=== PATIENT | male | born 1965 | race Two or more races ===

== ENCOUNTER 2019-05-29 08:47 | Inpatient (IN) | payer OTHER ==
--- NOTE | 2019-05-29 09:12 | PDOC ---
History of Present Illness - General Chief Complaint: Respiratory Stated Complaint: COUGHING/FEVER Time Seen by Provider: 05/29/19 09:12 Past History - Past Medical History Allergies/Adverse Reactions: Allergies Allergy/AdvReac Type Severity Reaction Status Date / Time No Known Allergies Allergy Verified 05/29/19 08:56 Home Medications: Ambulatory Orders Acetaminophen [Tylenol .Regular Strength -] 650 mg PO Q4H PRN #0 tablet Enalapril Maleate 2.5 mg PO DAILY 05/29/19 Entecavir 1 mg PO DAILY 05/29/19 Fluticasone Prop 0.05% Nasal [Flonase -] 1 spr IN ASDIR 05/29/19 Metformin HCl [Glucophage] 1,000 mg PO DAILY 05/29/19 Mv-Min/Folic/Vit K/Lycop/Coq10 [Daily Multivitamin Capsule] 1 each PO DAILY Simvastatin 20 mg PO HS 05/29/19 Anemia: No Asthma: No Cancer: Yes (MANTLE CELL LYMPHOMA) CVA: No COPD: No CHF: No Dementia: No Diabetes: Yes GI Disorders: Yes (GERD) Disorders: No HTN: No Hypercholesterolemia: Yes Liver Disease: Yes (CHRONIC NONALCOHOLIC LIVER DISEASE) Seizures: No - Surgical History Abdominal Surgery: No Appendectomy: Yes Cardiac Surgery: No Cholecystectomy: No Lung Surgery: Yes Neurologic Surgery: No Orthopedic Surgery: No - Psycho Social/Smoking Cessation Hx Smoking History: Never smoked Have you smoked in the past 12 months: No Number of Cigarettes Smoked Daily: 3 'Breaking Loose' booklet given: 10/19/15 Hx Alcohol Use: No Drug/Substance Use Hx: No Substance Use Type: None Hx Substance Use Treatment: No *Physical Exam - Vital Signs Last Vital Signs Temp Pulse Resp BP Pulse Ox 99.7 F H 101 H 20 91/60 97 05/29/19 09:02 05/29/19 09:02 05/29/19 09:02 05/29/19 09:02 05/29/19 09:02 Discharge - Follow up/Referral Referrals: Rufus Layne MD [Primary Care Provider] - - Patient Discharge Instructions - Post Discharge Activity
[2019-05-29] MEDS ORDERED: SODIUM CHLORIDE 2,041 ML IV ONE (09:26)
[2019-05-29 09:57] LABS: BASO % 0.5 % (0-2.0); HEMATOCRIT 37.5 % (35.4-49); HEMOGLOBIN 13.1 GM/dL (11.7-16.9); LYMPH % 20.6 % (8-40); MCH 34.6 pg (25.7-33.7); MCHC 35.1 g/dl (32.0-35.9); MEAN CELL VOLUME 98.6 fl (80-96); MEAN PLT VOLUME 7.5 fl (7.5-11.1); MONO % 14.1 % (3.8-10.2); NEUT % 64.8 % (42.8-82.8); PLATELET COUNT 149 K/MM3 (134-434); RDW 12.5 % (11.9-15.9); WHITE BLOOD COUNT 6.6 K/mm3 (4.0-10.0)
[2019-05-29 10:00] LABS: VENOUS PC02 33.4 mmHg (38-52); VENOUS PH 7.41 (7.31-7.41)
[2019-05-29 10:03] LABS: VENOUS PO2 < 49 mmHg (28-48)
[2019-05-29 10:21] LABS: ALBUMIN 3.5 g/dl (3.4-5.0); BILIRUBIN,TOTAL 0.8 mg/dL (0.2-1); BLOOD UREA NITROGEN 25.7 mg/dL (7-18); CREATININE 1.7 mg/dL (0.55-1.3); POTASSIUM 3.7 mmol/L (3.5-5.1); TOT PROT 6.6 g/dl (6.4-8.2)
[2019-05-29] MEDS ORDERED: OSELTAMIVIR PHOSPHATE 75 MG CAPSULE PO ONE (10:33)
[2019-05-29] MEDS ORDERED: PIPERACILLIN/TAZOB 3.375 GM 3.375 GM in DEXTROSE 5%-WATER - 50 ML IVPB ONE (10:37)
--- NOTE | 2019-05-29 10:41 | PDOC ---
Documentation entered by Freddy Giron SCRIBE, acting as scribe for Herminia Oswald MD. Herminia Oswald MD: This documentation has been prepared by the Mack arredondo Nirvannie, SCRIBE, under my direction and personally reviewed by me in its entirety. I confirm that the documentation accurately reflects all work, treatment, procedures, and medical decision making performed by me. History of Present Illness - General Chief Complaint: Respiratory Stated Complaint: COUGHING/FEVER Time Seen by Provider: 05/29/19 09:12 History Source: Patient Exam Limitations: No Limitations - History of Present Illness Initial Comments: 05/29/19 09:47 The patient is a 53 year old male, with a significant past medical history of NIDDM, Lymphoma (s/p bone marrow transplant), GERD, and HLD, who presents to the emergency department with 4 days of generalized malaise, cough and new onset chills. He endorses an associated mild sore throat. Patient notes taking Tylenol and Ibuprofen, with minimal relief prompting his arrival to the ED. Last dosage of Tylenol was at 7am. He denies any recent dizziness. He denies any recent nausea, vomiting, diarrhea or constipation. He denies any recent chest pain or shortness of breath. He denies any recent dysuria, frequency, urgency or hematuria. Allergies: NKDA Past surgical history: S/p Bone marrow transplant. Social History: Former smoker. Denies EtOH use and recreational drug use. Primary Care Physician: Dr. Layne Past History - Past Medical History Allergies/Adverse Reactions: Allergies Allergy/AdvReac Type Severity Reaction Status Date / Time No Known Allergies Allergy Verified 05/29/19 08:56 Home Medications: Ambulatory Orders Acetaminophen [Tylenol .Regular Strength -] 650 mg PO Q4H PRN #0 tablet Enalapril Maleate 2.5 mg PO DAILY 05/29/19 Entecavir 1 mg PO DAILY 05/29/19 Fluticasone Prop 0.05% Nasal [Flonase -] 1 spr IN ASDIR 05/29/19 Metformin HCl [Glucophage] 1,000 mg PO DAILY 05/29/19 Mv-Min/Folic/Vit K/Lycop/Coq10 [Daily Multivitamin Capsule] 1 each PO DAILY Simvastatin 20 mg PO HS 05/29/19 Anemia: No Asthma: No Cancer: Yes (MANTLE CELL LYMPHOMA) CVA: No COPD: No CHF: No Dementia: No Diabetes: Yes GI Disorders: Yes (GERD) Disorders: No HTN: No Hypercholesterolemia: Yes Liver Disease: Yes (CHRONIC NONALCOHOLIC LIVER DISEASE) Seizures: No - Surgical History Abdominal Surgery: No Appendectomy: Yes Cardiac Surgery: No Cholecystectomy: No Lung Surgery: Yes Neurologic Surgery: No Orthopedic Surgery: No - Psycho Social/Smoking Cessation Hx Smoking History: Never smoked Have you smoked in the past 12 months: No Number of Cigarettes Smoked Daily: 3 'Breaking Loose' booklet given: 10/19/15 Hx Alcohol Use: No Drug/Substance Use Hx: No Substance Use Type: None Hx Substance Use Treatment: No Review of Systems - Review of Systems Able to Perform ROS?: Yes Comments:: 05/29/19 09:47 GENERAL/CONSTITUTIONAL: +chills. +body aches. HEAD, EYES, EARS, NOSE AND THROAT: No change in vision. No ear pain or discharge. No sore throat. CARDIOVASCULAR: No chest pain or shortness of breath. RESPIRATORY:+cough. No wheezing, or hemoptysis. GASTROINTESTINAL: No nausea, vomiting, diarrhea or constipation. GENITOURINARY: No dysuria, frequency, or change in urination. MUSCULOSKELETAL:. No neck or back pain. SKIN: No rash NEUROLOGIC: No vertigo, loss of consciousness, or change in strength/sensation. ENDOCRINE: No increased thirst. No abnormal weight change. HEMATOLOGIC/LYMPHATIC: No anemia, easy bleeding, or history of blood clots. ALLERGIC/IMMUNOLOGIC: No hives or skin allergy. All Other Systems: Reviewed and Negative *Physical Exam - Vital Signs Last Vital Signs Temp Pulse Resp BP Pulse Ox 99.7 F H 101 H 20 91/60 97 05/29/19 09:02 05/29/19 09:02 05/29/19 09:02 05/29/19 09:02 05/29/19 09:02 - Physical Exam 05/29/19 09:54 GENERAL: +Mildly diaphoretic. Awake, alert, and fully oriented, in no acute distress HEAD: No signs of trauma EYES: PERRLA, EOMI, sclera anicteric, conjunctiva clear ENT: Auricles normal inspection, hearing grossly normal, nares patent, oropharynx clear without exudates. Moist mucosa NECK: Normal ROM, supple, no lymphadenopathy, JVD, or masses LUNGS: Breath sounds equal, clear to auscultation bilaterally. No wheezes, and no crackles HEART: Regular rate and rhythm, normal S1 and S2, no murmurs, rubs or gallops ABDOMEN: Soft, nontender, normoactive bowel sounds. No guarding, no rebound. No masses EXTREMITIES: Normal range of motion, no edema, no rash, No clubbing or cyanosis. No cords, erythema, or tenderness NEUROLOGICAL: A&Ox3. Cranial nerves II through XII grossly intact. Normal speech, normal gait SKIN: Warm, Dry, normal turgor, no rashes or lesions noted ED Treatment Course - LABORATORY CBC & Chemistry Diagram: 05/29/19 09:34 05/29/19 09:34 - ADDITIONAL ORDERS Additional order review: Laboratory Results 05/29/19 05/29/19 05/29/19 09:54 09:34 09:34 VBG pH 7.41 POC VBG pCO2 33.4 L POC VBG pO2 < 49 H VBG HCO3 20.5 L VBG O2 Sat (Sheila) 83.3 H VBG Base Excess -2.8 L Sodium Potassium Chloride Carbon Dioxide Anion Gap BUN Creatinine Est GFR (CKD-EPI)AfAm Est GFR (CKD-EPI)NonAf POC Glucometer 201 Random Glucose Lactic Acid 2.2 H* Calcium Total Bilirubin AST ALT Alkaline Phosphatase Troponin I Total Protein Albumin 05/29/19 05/29/19 09:34 09:34 VBG pH POC VBG pCO2 POC VBG pO2 VBG HCO3 VBG O2 Sat (Sheila) VBG Base Excess Sodium 134 L Potassium 3.7 Chloride 104 Carbon Dioxide 22 Anion Gap 8 BUN 25.7 H Creatinine 1.7 H Est GFR (CKD-EPI)AfAm 51.47 Est GFR (CKD-EPI)NonAf 44.41 POC Glucometer Random Glucose 204 H Lactic Acid Calcium 8.0 L Total Bilirubin 0.8 AST 20 ALT 26 Alkaline Phosphatase 83 Troponin I < 0.02 Total Protein 6.6 Albumin 3.5 05/29/19 05/29/19 09:54 09:34 RBC 3.80 L MCV 98.6 H MCHC 35.1 RDW 12.5 MPV 7.5 D Neutrophils % 64.8 D Lymphocytes % 20.6 D Monocytes % 14.1 H Eosinophils % 0.0 D Basophils % 0.5 POC Glucometer 201 - RADIOLOGY Radiology Studies Ordered: Category Date Time Status CHEST X-RAY PORTABLE* [RAD] Stat Radiology 05/29/19 09:26 Taken Medical Decision Making - Critical Care Time Total Critical Care Time (minutes): 45 Critical Care Statement: The care of this patient involved high complexity decision making to prevent further life threatening deterioration of the patient 's condition and/or to evaluate & treat vital organ system(s) failure or risk of failure. - Medical Decision Making 05/29/19 10:30 pt presents to the ED complaining of a four day history of fever, myalgias and productive cough. Borderline hypotensive on arrival to the ED. History of lymphoma with bone marrow transplant in 2017. Flu B is positive. Will start treatment with tamiflu. Given persistent mild hypotension, will start IV antibiotics for presumed sepsis, although no source has been identified. Will admit to medicine. 05/29/19 10:38 Discharge - Discharge Information Problems reviewed: Yes Clinical Impression/Diagnosis: Influenza B Sepsis Qualifiers: Sepsis type: sepsis due to unspecified organism Sepsis acute organ dysfunction status: unspecified Qualified Code(s): A41.9 - Sepsis, unspecified organism Condition: Fair - Admission Yes - Follow up/Referral - Patient Discharge Instructions - Post Discharge Activity
[2019-05-29] MEDS ORDERED: SODIUM CHLORIDE 0.9% 500 ML INFUS.BAG IV ONE (10:42)
[2019-05-29] MEDS ORDERED: OSELTAMIVIR PHOSPHATE 75 MG CAPSULE ONE (10:43)
[2019-05-29] MEDS ORDERED: PIPERACILLIN/TAZOB 3.375 GM 3.375 GM/50 ML BAG IVPB ONE (10:44)
[2019-05-29 10:48] LABS: INR 1.15 (0.83-1.09); PROTHROMBIN TIME (PATIENT) 13.6 SEC (9.7-13.0)
[2019-05-29 10:50] LABS: ACTIVATED PTT 39.8 SECONDS (25.2-36.5)
--- NOTE | 2019-05-29 11:51 | PDOC ---
*Physical Exam - Vital Signs Last Vital Signs Temp Pulse Resp BP Pulse Ox 98.7 F 83 16 90/62 96 05/29/19 10:30 05/29/19 11:04 05/29/19 11:04 05/29/19 11:04 05/29/19 10:30 Vital Signs - Vital Signs #1 Time: 11:51 Blood Pressure: 100/64 BP Location: Right Arm Blood Pressure Position: Supine Pulse Rate: 89 Respiratory Rate: 26 O2 Sat by Pulse Oximetry (%): 95 Oxygen Delivery Method: Room Air ED Treatment Course - LABORATORY CBC & Chemistry Diagram: 05/29/19 09:34 05/29/19 09:34 - ADDITIONAL ORDERS Additional order review: Laboratory Results 05/29/19 05/29/19 05/29/19 09:54 09:34 09:34 PT with INR INR PTT (Actin FS) VBG pH 7.41 POC VBG pCO2 33.4 L POC VBG pO2 < 49 H VBG HCO3 20.5 L VBG O2 Sat (Sheila) 83.3 H VBG Base Excess -2.8 L Sodium Potassium Chloride Carbon Dioxide Anion Gap BUN Creatinine Est GFR (CKD-EPI)AfAm Est GFR (CKD-EPI)NonAf POC Glucometer 201 Random Glucose Lactic Acid 2.2 H* Calcium Total Bilirubin AST ALT Alkaline Phosphatase Troponin I Total Protein Albumin 05/29/19 05/29/19 05/29/19 09:34 09:34 09:34 PT with INR 13.60 H INR 1.15 H PTT (Actin FS) 39.8 H VBG pH POC VBG pCO2 POC VBG pO2 VBG HCO3 VBG O2 Sat (Sheila) VBG Base Excess Sodium 134 L Potassium 3.7 Chloride 104 Carbon Dioxide 22 Anion Gap 8 BUN 25.7 H Creatinine 1.7 H Est GFR (CKD-EPI)AfAm 51.47 Est GFR (CKD-EPI)NonAf 44.41 POC Glucometer Random Glucose 204 H Lactic Acid Calcium 8.0 L Total Bilirubin 0.8 AST 20 ALT 26 Alkaline Phosphatase 83 Troponin I < 0.02 Total Protein 6.6 Albumin 3.5 05/29/19 05/29/19 09:54 09:34 RBC 3.80 L MCV 98.6 H MCHC 35.1 RDW 12.5 MPV 7.5 D Neutrophils % 64.8 D Lymphocytes % 20.6 D Monocytes % 14.1 H Eosinophils % 0.0 D Basophils % 0.5 POC Glucometer 201 - Medications Given in the ED: ED Medications Discontinued Medications Generic Name Dose Route Start Last Admin Trade Name Danika PRN Reason Stop Dose Admin Sodium Chloride 2,041 mls @ 1,020.5 mls/hr 05/29/19 09:26 05/29/19 09:50 Normal Saline - 30 ml/kg infuse over 2 hr (2041 ml) 05/29/19 11:25 1,020.5 mls/hr IV Administration ONCE ONE Piperacillin Sod/Tazobactam 50 mls @ 100 mls/hr 05/29/19 10:37 05/29/19 10:45 Sod 3.375 gm/ Dextrose IVPB 05/29/19 11:06 100 mls/hr ONCE ONE Administration Protocol Oseltamivir Phosphate 75 mg 05/29/19 10:33 05/29/19 10:45 Tamiflu - PO 05/29/19 10:34 75 mg ONCE ONE Administration Sodium Chloride 1,000 ml 05/29/19 10:42 05/29/19 10:46 Normal Saline - IV 05/29/19 10:43 1,000 ml ONCE ONE Administration Medical Decision Making - Medical Decision Making I have assumed care to help out with any procedures if needed Patient consented for central line placement if BP remains low and patient requires pressers Inpatient team wants to wait on central line for time being. BP stabilized with additional fluid and patient did not end up needing a central line for pressers. Discharge - Discharge Information Problems reviewed: Yes Clinical Impression/Diagnosis: Influenza B Sepsis Qualifiers: Sepsis type: sepsis due to unspecified organism Sepsis acute organ dysfunction status: unspecified Qualified Code(s): A41.9 - Sepsis, unspecified organism Condition: Stable - Follow up/Referral - Patient Discharge Instructions - Post Discharge Activity
[2019-05-29] MEDS ORDERED: SODIUM CHLORIDE 500 ML IV STA (12:07)
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
[2019-05-29] MEDS ORDERED: SODIUM CHLORIDE 1,000 ML IV SCH (12:15)
[2019-05-29 12:18] LABS: EPI CELLS 1.8 /HPF (0-5/HPF); HYALINE CASTS 2 /lpf (0-8); URINE APPEARANCE CLEAR; URINE BACTERIA 4.1 /hpf (NEGATIVE); URINE BILIRUBIN NEGATIVE (NEGATIVE); URINE COLOR YELLOW; URINE GLUCOSE (UA) NEGATIVE (NEGATIVE); URINE KETONE NEGATIVE (NEGATIVE); URINE LEUK ESTERASE 1+ (NEGATIVE); URINE NITRITE NEGATIVE (NEGATIVE); URINE PROTEIN TRACE (NEGATIVE); URINE RBC 1 /hpf (0-4); URINE UROBILINOGEN 0.2 mg/dL (0.2-1.0); URINE WBC 1 /hpf (0-5)
--- NOTE | 2019-05-29 13:40 | PN ---
Teaching Attending Note Name of Resident: Grupo Cedillo ATTENDING PHYSICIAN STATEMENT I saw and evaluated the patient. I reviewed the resident's note and discussed the case with the resident. I agree with the resident's findings and plan as documented. SUBJECTIVE: Patient seen and examined in the ER. Awake and alert. Has received almost 3 Liters IVF. Feels better. MAP 68. No tachycardia. No dizziness. No CP or SOB. Intake & Output 05/26/19 05/27/19 05/28/19 05/29/19 23:59 23:59 23:59 23:59 Weight 150 lb Last Vital Signs Temp Pulse Resp BP Pulse Ox 98.1 F 89 26 H 100/64 95 05/29/19 13:26 05/29/19 13:33 05/29/19 13:33 05/29/19 13:33 05/29/19 13:33 Active Medications Acetaminophen (Tylenol -) 650 mg PO Q6H PRN PRN Reason: FEVER Heparin Sodium (Porcine) (Heparin -) 5,000 unit SQ Q8H-IV ROS Sodium Chloride (Normal Saline -) 500 mls @ 500 mls/hr IV ASDIR STA Stop: 05/29/19 13:06 Last Admin: 05/29/19 13:20 Dose: 500 mls/hr Sodium Chloride (Normal Saline -) 1,000 mls @ 100 mls/hr IV ASDIR ROS Last Admin: 05/29/19 13:20 Dose: 100 mls/hr Sodium Chloride (Normal Saline -) 1,000 mls @ 125 mls/hr IV ASDIR ROS Insulin Aspart (Novolog Vial Sliding Scale -) 0 vial SQ ACHS ROS; Protocol Oseltamivir Phosphate (Tamiflu -) 75 mg PO BID ROS Stop: 06/03/19 21:59 GENERAL: Awake, alert, and fully oriented, in no acute distress HEAD: No signs of trauma EYES: PERRLA, EOMI, sclera anicteric, conjunctiva clear ENT: Auricles normal inspection, hearing grossly normal, nares patent, oropharynx clear without exudates. Moist mucosa NECK: Normal ROM, supple, no lymphadenopathy, JVD, or masses LUNGS: Breath sounds equal, clear to auscultation bilaterally. No wheezes, and no crackles HEART: Regular rate and rhythm, normal S1 and S2, no murmurs, rubs or gallops ABDOMEN: Soft, nontender, normoactive bowel sounds. No guarding, no rebound. No masses EXTREMITIES: Normal range of motion, no edema, no rash, No clubbing or cyanosis. No cords, erythema, or tenderness NEUROLOGICAL: A&Ox3. Non-focal SKIN: Warm, Dry, normal turgor, no rashes or lesions noted Laboratory Results 05/29/19 05/29/19 05/29/19 09:54 09:34 09:34 VBG pH 7.41 POC VBG pCO2 33.4 L POC VBG pO2 < 49 H VBG HCO3 20.5 L VBG O2 Sat (Sheila) 83.3 H VBG Base Excess -2.8 L Sodium Potassium Chloride Carbon Dioxide Anion Gap BUN Creatinine Est GFR (CKD-EPI)AfAm Est GFR (CKD-EPI)NonAf POC Glucometer 201 Random Glucose Lactic Acid 2.2 H* Calcium Total Bilirubin AST ALT Alkaline Phosphatase Troponin I Total Protein Albumin 05/29/19 05/29/19 09:34 09:34 VBG pH POC VBG pCO2 POC VBG pO2 VBG HCO3 VBG O2 Sat (Sheila) VBG Base Excess Sodium 134 L Potassium 3.7 Chloride 104 Carbon Dioxide 22 Anion Gap 8 BUN 25.7 H Creatinine 1.7 H Est GFR (CKD-EPI)AfAm 51.47 Est GFR (CKD-EPI)NonAf 44.41 POC Glucometer Random Glucose 204 H Lactic Acid Calcium 8.0 L Total Bilirubin 0.8 AST 20 ALT 26 Alkaline Phosphatase 83 Troponin I < 0.02 Total Protein 6.6 Albumin 3.5 05/29/19 05/29/19 09:54 09:34 RBC 3.80 L MCV 98.6 H MCHC 35.1 RDW 12.5 MPV 7.5 D Neutrophils % 64.8 D Lymphocytes % 20.6 D Monocytes % 14.1 H Eosinophils % 0.0 D Basophils % 0.5 POC Glucometer 201 IMP: Sepsis due to Influenza B History of Mantle Cell CA Previous Smoker SEN likely due to volume depletion Continue aggressive IVF resuscitation O2 as needed Isolate Tamiflu BID BP checks Q4h Will follow Please call for changes in condition Can be monitored on the medical floor at this time Dr Farrell
[2019-05-29] MEDS: SODIUM CHLORIDE 1,000 ML IV SCH (14:12)
--- NOTE | 2019-05-29 14:39 | EKG ---
Test Reason : Blood Pressure : / mmHG Vent. Rate : 100 BPM Atrial Rate : 089 BPM P-R Int : 162 ms QRS Dur : 092 ms QT Int : 352 ms P-R-T Axes : 038 -24 050 degrees QTc Int : 454 ms SINUS RHYTHM WITH FREQUENT PREMATURE VENTRICULAR COMPLEXES OTHERWISE NORMAL ECG WHEN COMPARED WITH ECG OF 19-OCT-2015 05:23, PREMATURE VENTRICULAR COMPLEXES ARE NOW PRESENT Confirmed by KRYSTLE FELICIANO MD ([id number]) on 05/29/2019 2:39:21 PM Referred By: Confirmed By:KRYSTLE FELICIANO MD
[2019-05-29] MEDS: HEPARIN NA (PORCINE) 5,000 UNITS/ML 1ML VIAL SQ SCH ×2 (14:41→22:58)
--- NOTE | 2019-05-29 14:53 | PN ---
Teaching Attending Note Name of Resident: Valerio Soto ATTENDING PHYSICIAN STATEMENT I saw and evaluated the patient. I reviewed the resident's note and discussed the case with the resident. I agree with the resident's findings and plan as documented. 53 M h/o HTN, NIDDM, ?chronic Hep B, remote h/o lymphoma (s/p bone marrow transplant years ago), GERD, and HLD, presenting to the ED with generalized body weakness, malaise, muscle aches, soreness, runny nose, and cough with yellow sputum production that started 2 days ago. Patient endorses taking Theraflu and some NSAIDs at home due to above symptoms. Otherwise denies sick contacts, works as a lunch truck driver, denies recent hospitalizations. Denies recent travel, bleeding from any source, abdominal pain, N/V/D, urinary complaints, dizziness, CP or SOB. In ED pt. found to have Influenza B+. Tamiflu started. PE GA comfortable, AAox3, sitting upright, NAD HEENT NC/AT, EOMI, dry MM, neck supple, no cervical lymphadenopathy Chest CTAB, no crackles or wheezing CVS S1, S2+, RRR, no m/r/g Abd Soft, NT, ND, BS+, no guarding Ext No LE edema, no calf tenderness, moves all 4 extremities Vital Signs - 24 hr 05/29/19 05/29/19 05/29/19 09:02 09:58 10:30 Temperature 99.7 F H 98.7 F Pulse Rate 101 H Pulse Rate [#1] Pulse Rate [ 90 86 Apical] Respiratory 20 22 H 17 Rate Respiratory Rate [#1] Blood Pressure 91/60 Blood Pressure [#1] Blood Pressure 83/52 L 87/56 L [Left Arm] O2 Sat by Pulse 97 95 96 Oximetry (%) O2 Sat by Pulse Oximetry (%) [ #1] 05/29/19 05/29/19 05/29/19 11:04 12:00 13:26 Temperature 98.1 F Pulse Rate Pulse Rate [#1] Pulse Rate [ 83 83 Apical] Respiratory 16 17 Rate Respiratory Rate [#1] Blood Pressure Blood Pressure [#1] Blood Pressure 90/62 103/61 [Left Arm] O2 Sat by Pulse Oximetry (%) O2 Sat by Pulse Oximetry (%) [ #1] 05/29/19 13:33 Temperature Pulse Rate Pulse Rate [#1] 89 Pulse Rate [ Apical] Respiratory Rate Respiratory 26 H Rate [#1] Blood Pressure Blood Pressure 100/64 [#1] Blood Pressure [Left Arm] O2 Sat by Pulse Oximetry (%) O2 Sat by Pulse 95 Oximetry (%) [ #1] Laboratory Tests 05/29/19 05/29/19 05/29/19 09:34 09:34 09:34 WBC 6.6 RBC 3.80 L Hgb 13.1 Hct 37.5 MCV 98.6 H MCH 34.6 H MCHC 35.1 RDW 12.5 Plt Count 149 MPV 7.5 D Absolute Neuts (auto) 4.3 Neutrophils % 64.8 D Lymphocytes % 20.6 D Monocytes % 14.1 H Eosinophils % 0.0 D Basophils % 0.5 Nucleated RBC % 0 PT with INR 13.60 H INR 1.15 H PTT (Actin FS) 39.8 H VBG pH POC VBG pCO2 POC VBG pO2 VBG HCO3 VBG O2 Sat (Sheila) VBG Base Excess Sodium Potassium Chloride Carbon Dioxide Anion Gap BUN Creatinine Est GFR (CKD-EPI)AfAm Est GFR (CKD-EPI)NonAf POC Glucometer Random Glucose Lactic Acid Calcium Total Bilirubin AST ALT Alkaline Phosphatase Troponin I < 0.02 Total Protein Albumin Urine Color Urine Appearance Urine pH Ur Specific [place] Urine Protein Urine Glucose (UA) Urine Ketones Urine Blood Urine Nitrite Urine Bilirubin Urine Urobilinogen Ur Leukocyte Esterase Urine WBC (Auto) Urine RBC (Auto) Urine Casts (Auto) U Epithel Cells (Auto) Urine Bacteria (Auto) Influenza A (Rapid) Influenza B (Rapid) 05/29/19 05/29/19 05/29/19 09:34 09:34 09:34 WBC RBC Hgb Hct MCV MCH MCHC RDW Plt Count MPV Absolute Neuts (auto) Neutrophils % Lymphocytes % Monocytes % Eosinophils % Basophils % Nucleated RBC % PT with INR INR PTT (Actin FS) VBG pH 7.41 POC VBG pCO2 33.4 L POC VBG pO2 < 49 H VBG HCO3 20.5 L VBG O2 Sat (Sheila) 83.3 H VBG Base Excess -2.8 L Sodium 134 L Potassium 3.7 Chloride 104 Carbon Dioxide 22 Anion Gap 8 BUN 25.7 H Creatinine 1.7 H Est GFR (CKD-EPI)AfAm 51.47 Est GFR (CKD-EPI)NonAf 44.41 POC Glucometer Random Glucose 204 H Lactic Acid 2.2 H* Calcium 8.0 L Total Bilirubin 0.8 AST 20 ALT 26 Alkaline Phosphatase 83 Troponin I Total Protein 6.6 Albumin 3.5 Urine Color Urine Appearance Urine pH Ur Specific [place] Urine Protein Urine Glucose (UA) Urine Ketones Urine Blood Urine Nitrite Urine Bilirubin Urine Urobilinogen Ur Leukocyte Esterase Urine WBC (Auto) Urine RBC (Auto) Urine Casts (Auto) U Epithel Cells (Auto) Urine Bacteria (Auto) Influenza A (Rapid) Influenza B (Rapid) 05/29/19 05/29/19 05/29/19 09:54 09:57 12:00 WBC RBC Hgb Hct MCV MCH MCHC RDW Plt Count MPV Absolute Neuts (auto) Neutrophils % Lymphocytes % Monocytes % Eosinophils % Basophils % Nucleated RBC % PT with INR INR PTT (Actin FS) VBG pH POC VBG pCO2 POC VBG pO2 VBG HCO3 VBG O2 Sat (Sheila) VBG Base Excess Sodium Potassium Chloride Carbon Dioxide Anion Gap BUN Creatinine Est GFR (CKD-EPI)AfAm Est GFR (CKD-EPI)NonAf POC Glucometer 201 Random Glucose Lactic Acid Calcium Total Bilirubin AST ALT Alkaline Phosphatase Troponin I Total Protein Albumin Urine Color Yellow Urine Appearance Clear Urine pH 6.0 Ur Specific [place] 1.009 L Urine Protein Trace Urine Glucose (UA) Negative Urine Ketones Negative Urine Blood Negative Urine Nitrite Negative Urine Bilirubin Negative Urine Urobilinogen 0.2 Ur Leukocyte Esterase 1+ H Urine WBC (Auto) 1 Urine RBC (Auto) 1 Urine Casts (Auto) 2 U Epithel Cells (Auto) 1.8 Urine Bacteria (Auto) 4.1 Influenza A (Rapid) Negative Influenza B (Rapid) Positive A 05/29/19 13:17 WBC RBC Hgb Hct MCV MCH MCHC RDW Plt Count MPV Absolute Neuts (auto) Neutrophils % Lymphocytes % Monocytes % Eosinophils % Basophils % Nucleated RBC % PT with INR INR PTT (Actin FS) VBG pH POC VBG pCO2 POC VBG pO2 VBG HCO3 VBG O2 Sat (Sheila) VBG Base Excess Sodium Potassium Chloride Carbon Dioxide Anion Gap BUN Creatinine Est GFR (CKD-EPI)AfAm Est GFR (CKD-EPI)NonAf POC Glucometer Random Glucose Lactic Acid 1.3 Calcium Total Bilirubin AST ALT Alkaline Phosphatase Troponin I Total Protein Albumin Urine Color Urine Appearance Urine pH Ur Specific [place] Urine Protein Urine Glucose (UA) Urine Ketones Urine Blood Urine Nitrite Urine Bilirubin Urine Urobilinogen Ur Leukocyte Esterase Urine WBC (Auto) Urine RBC (Auto) Urine Casts (Auto) U Epithel Cells (Auto) Urine Bacteria (Auto) Influenza A (Rapid) Influenza B (Rapid) Home Medications Medication Instructions Recorded Acetaminophen [Tylenol .Regular 650 mg PO Q4H PRN #0 tablet 10/22/15 Strength -] Enalapril Maleate 2.5 mg PO DAILY 05/29/19 Entecavir 1 mg PO DAILY 05/29/19 Fluticasone Prop 0.05% Nasal 1 spr IN ASDIR 05/29/19 [Flonase -] Metformin HCl [Glucophage] 1,000 mg PO DAILY 05/29/19 Mv-Min/Folic/Vit K/Lycop/Coq10 1 each PO DAILY 05/29/19 [Daily Multivitamin Capsule] Simvastatin 20 mg PO HS 05/29/19 A/P: 53 M h/o T2DM, lymphoma (remote history), ?chronic Hep B, HTN, GERD, HLD, presents with viral-like illness, Flu B+, soft BP in ED but responding to fluids. Influenza B+ aggressive IVF patient clinically dry not effectively volume resuscitated, cont. IV hydration @125mL/hr, give another bolus of NS Cont. Tamiflu, droplet isolation, notify family/close contacts Tylenol for fever or pain, avoid nephrotoxins/NSAIDs HTN hold BP meds for now Elevated lactic acid likely 2/2 volume depletion and transient hypotension now resolved with IVF HLD restart statin SEN ?related to pre-renal cause, in addition to NSAID use at home aggressive IVF, trend CRE, obtain renal US, Hold entecavir for now in view of SEN and concurrent oseltamivir use to avoid drug-drug interaction Renal consult: Dr Eldridge DVT ppx: Lovenox SC FEN: IVF, daily chem, DM diet
[2019-05-29] MEDS: INSULIN SLIDING SCALE (NOVOLOG) 1 VIAL SQ SCH ×2 (17:02→22:59)
--- NOTE | 2019-05-29 17:02 | CONSULT ---
Consultation: REQUESTING PROVIDER: CONSULT REQUEST: We have been asked to medically evaluate this patient for ( specify). HISTORY OF PRESENT ILLNESS: 53 yo M PMH HTN, HLD, NIDDM, lymphoma s/p bone marrow transplant, GERD, presented to the ED with 4 days of generalized body weakness, malaise, muscle aches, and cough. Tried Thermaflu at home without relief. Found to be rapid flu B positive. Initially hypotensive to 87/56, but after 3L of fluid, had improved BP. Received piptazo in the ED. Patient is Czech speaking only. REVIEW OF SYSTEMS: CONSTITUTIONAL: endorses fever, chills, generalized weakness, malaise HEENT: endorses rhinorrhea, nasal congestion CARDIOVASCULAR: denies chest pain, syncope, palpitations, irregular heart rate, lightheadedness, peripheral edema RESPIRATORY: endorses cough, shortness of breath, dyspnea with exertion GASTROINTESTINAL: denies abdominal pain, abdominal distension, nausea, vomiting , diarrhea, constipation, melena, hematochezia GENITOURINARY: denies dysuria, frequency, urgency, hesitancy, hematuria, flank pain, genital pain MUSCULOSKELETAL: endorses myalgias SKIN: denies rash, itching, pallor HEMATOLOGIC/IMMUNOLOGIC: denies easy bleeding, easy bruising, lymphadenopathy, frequent infections ENDOCRINE: denies unexplained weight gain, unexplained weight loss, heat intolerance, cold intolerance NEUROLOGIC: denies headache, focal weakness or paresthesias, dizziness, unsteady gait, seizure, mental status changes, bladder or bowel incontinence PSYCHIATRIC: denies anxiety, depression, suicidal or homicidal ideation, hallucinations. PHYSICAL EXAMINATION Vital Signs - 24 hr 05/29/19 05/29/19 05/29/19 09:02 09:58 10:30 Temperature 99.7 F H 98.7 F Pulse Rate 101 H Pulse Rate [#1] Pulse Rate [ 90 86 Apical] Respiratory 20 22 H 17 Rate Respiratory Rate [#1] Blood Pressure 91/60 Blood Pressure [#1] Blood Pressure 83/52 L 87/56 L [Left Arm] O2 Sat by Pulse 97 95 96 Oximetry (%) O2 Sat by Pulse Oximetry (%) [ #1] 05/29/19 05/29/19 05/29/19 11:04 12:00 13:26 Temperature 98.1 F Pulse Rate Pulse Rate [#1] Pulse Rate [ 83 83 Apical] Respiratory 16 17 Rate Respiratory Rate [#1] Blood Pressure Blood Pressure [#1] Blood Pressure 90/62 103/61 [Left Arm] O2 Sat by Pulse Oximetry (%) O2 Sat by Pulse Oximetry (%) [ #1] 05/29/19 13:33 Temperature Pulse Rate Pulse Rate [#1] 89 Pulse Rate [ Apical] Respiratory Rate Respiratory 26 H Rate [#1] Blood Pressure Blood Pressure 100/64 [#1] Blood Pressure [Left Arm] O2 Sat by Pulse Oximetry (%) O2 Sat by Pulse 95 Oximetry (%) [ #1] GENERAL: Awake, alert, and fully oriented, in no acute distress. Continuing to cough. HEAD: Normal with no signs of trauma. EYES: Pupils equal, round and reactive to light, extraocular movements intact, sclera anicteric EARS, NOSE, THROAT: Ears normal, nares patent, oropharynx clear without exudates NECK: Normal range of motion, supple LUNGS: Bilateral rhonchi at the bases. HEART: Regular rate and rhythm, normal S1 and S2 ABDOMEN: Soft, nontender, not distended, normoactive bowel sounds, no guarding, no rebound MUSCULOSKELETAL: Normal range of motion at all joints. No bony deformities or tenderness. No CVA tenderness. UPPER EXTREMITIES: 2+ pulses, warm, well-perfused. No cyanosis. No clubbing. Cap refill <2 seconds. No peripheral edema. LOWER EXTREMITIES: 2+ pulses, warm, well-perfused. No calf tenderness. No peripheral edema. NEUROLOGICAL: Cranial nerves II-XII intact. Normal speech. Normal gait. PSYCHIATRIC: Cooperative. Good eye contact. Appropriate mood and affect. SKIN: Warm, dry Laboratory Results - last 24 hr 05/29/19 05/29/19 05/29/19 09:34 09:34 09:34 WBC 6.6 RBC 3.80 L Hgb 13.1 Hct 37.5 MCV 98.6 H MCH 34.6 H MCHC 35.1 RDW 12.5 Plt Count 149 MPV 7.5 D Absolute Neuts (auto) 4.3 Neutrophils % 64.8 D Lymphocytes % 20.6 D Monocytes % 14.1 H Eosinophils % 0.0 D Basophils % 0.5 Nucleated RBC % 0 PT with INR 13.60 H INR 1.15 H PTT (Actin FS) 39.8 H VBG pH POC VBG pCO2 POC VBG pO2 VBG HCO3 VBG O2 Sat (Sheila) VBG Base Excess Sodium Potassium Chloride Carbon Dioxide Anion Gap BUN Creatinine Est GFR (CKD-EPI)AfAm Est GFR (CKD-EPI)NonAf POC Glucometer Random Glucose Lactic Acid Calcium Total Bilirubin AST ALT Alkaline Phosphatase Troponin I < 0.02 Total Protein Albumin Urine Color Urine Appearance Urine pH Ur Specific [place] Urine Protein Urine Glucose (UA) Urine Ketones Urine Blood Urine Nitrite Urine Bilirubin Urine Urobilinogen Ur Leukocyte Esterase Urine WBC (Auto) Urine RBC (Auto) Urine Casts (Auto) U Epithel Cells (Auto) Urine Bacteria (Auto) Influenza A (Rapid) Influenza B (Rapid) 05/29/19 05/29/19 05/29/19 09:34 09:34 09:34 WBC RBC Hgb Hct MCV MCH MCHC RDW Plt Count MPV Absolute Neuts (auto) Neutrophils % Lymphocytes % Monocytes % Eosinophils % Basophils % Nucleated RBC % PT with INR INR PTT (Actin FS) VBG pH 7.41 POC VBG pCO2 33.4 L POC VBG pO2 < 49 H VBG HCO3 20.5 L VBG O2 Sat (Sheila) 83.3 H VBG Base Excess -2.8 L Sodium 134 L Potassium 3.7 Chloride 104 Carbon Dioxide 22 Anion Gap 8 BUN 25.7 H Creatinine 1.7 H Est GFR (CKD-EPI)AfAm 51.47 Est GFR (CKD-EPI)NonAf 44.41 POC Glucometer Random Glucose 204 H Lactic Acid 2.2 H* Calcium 8.0 L Total Bilirubin 0.8 AST 20 ALT 26 Alkaline Phosphatase 83 Troponin I Total Protein 6.6 Albumin 3.5 Urine Color Urine Appearance Urine pH Ur Specific [place] Urine Protein Urine Glucose (UA) Urine Ketones Urine Blood Urine Nitrite Urine Bilirubin Urine Urobilinogen Ur Leukocyte Esterase Urine WBC (Auto) Urine RBC (Auto) Urine Casts (Auto) U Epithel Cells (Auto) Urine Bacteria (Auto) Influenza A (Rapid) Influenza B (Rapid) 05/29/19 05/29/19 05/29/19 09:54 09:57 12:00 WBC RBC Hgb Hct MCV MCH MCHC RDW Plt Count MPV Absolute Neuts (auto) Neutrophils % Lymphocytes % Monocytes % Eosinophils % Basophils % Nucleated RBC % PT with INR INR PTT (Actin FS) VBG pH POC VBG pCO2 POC VBG pO2 VBG HCO3 VBG O2 Sat (Sheila) VBG Base Excess Sodium Potassium Chloride Carbon Dioxide Anion Gap BUN Creatinine Est GFR (CKD-EPI)AfAm Est GFR (CKD-EPI)NonAf POC Glucometer 201 Random Glucose Lactic Acid Calcium Total Bilirubin AST ALT Alkaline Phosphatase Troponin I Total Protein Albumin Urine Color Yellow Urine Appearance Clear Urine pH 6.0 Ur Specific [place] 1.009 L Urine Protein Trace Urine Glucose (UA) Negative Urine Ketones Negative Urine Blood Negative Urine Nitrite Negative Urine Bilirubin Negative Urine Urobilinogen 0.2 Ur Leukocyte Esterase 1+ H Urine WBC (Auto) 1 Urine RBC (Auto) 1 Urine Casts (Auto) 2 U Epithel Cells (Auto) 1.8 Urine Bacteria (Auto) 4.1 Influenza A (Rapid) Negative Influenza B (Rapid) Positive A 05/29/19 13:17 WBC RBC Hgb Hct MCV MCH MCHC RDW Plt Count MPV Absolute Neuts (auto) Neutrophils % Lymphocytes % Monocytes % Eosinophils % Basophils % Nucleated RBC % PT with INR INR PTT (Actin FS) VBG pH POC VBG pCO2 POC VBG pO2 VBG HCO3 VBG O2 Sat (Sheila) VBG Base Excess Sodium Potassium Chloride Carbon Dioxide Anion Gap BUN Creatinine Est GFR (CKD-EPI)AfAm Est GFR (CKD-EPI)NonAf POC Glucometer Random Glucose Lactic Acid 1.3 Calcium Total Bilirubin AST ALT Alkaline Phosphatase Troponin I Total Protein Albumin Urine Color Urine Appearance Urine pH Ur Specific [place] Urine Protein Urine Glucose (UA) Urine Ketones Urine Blood Urine Nitrite Urine Bilirubin Urine Urobilinogen Ur Leukocyte Esterase Urine WBC (Auto) Urine RBC (Auto) Urine Casts (Auto) U Epithel Cells (Auto) Urine Bacteria (Auto) Influenza A (Rapid) Influenza B (Rapid) Active Medications Generic Name Dose Route Start Last Admin Trade Name Freq PRN Reason Stop Dose Admin Acetaminophen 650 mg 05/29/19 13:33 Tylenol - PO Q6H PRN FEVER Atorvastatin Calcium 10 mg 05/29/19 22:00 Lipitor - PO HS ROS Heparin Sodium (Porcine) 5,000 unit 05/29/19 14:00 05/29/19 14:41 Heparin - SQ 5,000 unit TID ROS Administration Sodium Chloride 1,000 mls @ 125 mls/hr 05/29/19 13:45 05/29/19 14:12 Normal Saline - IV 125 mls/hr ASDIR ROS Administration Insulin Aspart 1 vial 05/29/19 16:30 Novolog Vial Sliding Scale - SQ ACHS [facility] Protocol Multivitamins/Minerals/Vitamin C 1 tab 05/30/19 10:00 Tab-A-Vit - PO DAILY [facility] Oseltamivir Phosphate 30 mg 05/29/19 22:00 Tamiflu - PO 06/03/19 21:59 BID [facility] ASSESSMENT/PLAN: 53 yo M PMH HTN, HLD, NIDDM, lymphoma s/p bone marrow transplant, GERD, presented in sepsis, found to be rapid influenza B positive. Initially hypotensive to 80s/50s but improved with fluids. Neuro: - awake, alert, oriented - no acute concerns CV: - hx HTN - initially hypotensive to 80s/50s, but improved with fluid - q4 vital signs - f/u echo - ctm Respiratory: - Rapid flu B positive - CXR without acute pathology - ctm GI: - hx GERD - no acute concerns Renal: - Cr 1.7 from 1.1 - Lactate from 2.2 to 1.3 - renal/kidney US Heme/Onc: - lymphoma s/p bone marrow transplant - no acute concerns ID: - rapid influenza B positive - received one dose of piptazo in the ED - starting Tamiflu Dispo: Patient does not require ICU care at this time and will be admitted to the floors. Thank you for this consultative opportunity. Visit type - Emergency Visit Emergency Visit: Yes ED Registration Date: 05/29/19 Care time: The patient presented to the Emergency Department on the above date and was hospitalized for further evaluation of their emergent condition. - New Patient This patient is new to me today: Yes Date on this admission: 05/29/19 - Critical Care Critical Care patient: No ATTENDING PHYSICIAN STATEMENT I saw and evaluated the patient. I reviewed the resident's note and discussed the case with the resident. I agree with the resident's findings and plan as documented. SUBJECTIVE: OBJECTIVE: ASSESSMENT AND PLAN:
[2019-05-29] MEDS ORDERED: ACETAMINOPHEN 325 MG TABLET (FP) ONE (19:19)
[2019-05-29] MEDS: ACETAMINOPHEN 325 MG TABLET (FP) PO PRN (19:33)
--- NOTE | 2019-05-29 20:04 | CONSULT ---
Consult Consult Specialty:: Nephrology Reason for Consultation:: TL - History of Present Illness Chief Complaint: weakness and malaise History of Present Illness: Pt is a 53 year old male with pmhx of htn, dm, lymphoms, bone marrow transplant , hep b, gerd, and hld who presents with generalized weakness and muscle aches. He also complains of runny nose. His swab was pos for influenza b. He was around a sick child. He was found to have elevated community service officer coordinator and I was called to evaluate him. He denies lower ext edema. He denies dysuria or hematuria. - History Source History Provided By: Patient - Past Medical History Cardio/Vascular: Yes: HTN Heme/Onc: Yes: Other (lymphoma) Endocrine: Yes: Diabetes Mellitus - Alcohol/Substance Use Hx Alcohol Use: No - Smoking History Smoking history: Never smoked Have you smoked in the past 12 months: No Aproximately how many cigarettes per day: 3 Home Medications - Allergies Allergies/Adverse Reactions: Allergies Allergy/AdvReac Type Severity Reaction Status Date / Time No Known Allergies Allergy Verified 05/29/19 08:56 - Home Medications Home Medications: Ambulatory Orders Acetaminophen [Tylenol .Regular Strength -] 650 mg PO Q4H PRN #0 tablet Enalapril Maleate 2.5 mg PO DAILY 05/29/19 Entecavir 1 mg PO DAILY 05/29/19 Fluticasone Prop 0.05% Nasal [Flonase -] 1 spr IN ASDIR 05/29/19 Metformin HCl [Glucophage] 1,000 mg PO DAILY 05/29/19 Mv-Min/Folic/Vit K/Lycop/Coq10 [Daily Multivitamin Capsule] 1 each PO DAILY Simvastatin 20 mg PO HS 05/29/19 Family Medical History Family History: Denies Review of Systems - Review of Systems Constitutional: reports: Malaise Eyes: reports: No Symptoms HENT: reports: No Symptoms Neck: reports: No Symptoms Respiratory: reports: Cough, Other (rinorrhea) Gastrointestinal: reports: No Symptoms Musculoskeletal: reports: Other (aches) Neurological: reports: No Symptoms Endocrine: reports: No Symptoms Physical Exam Vital Signs: Vital Signs Temperature 100.8 F H 05/29/19 19:32 Pulse Rate 100 H 05/29/19 19:32 Respiratory Rate 22 H 05/29/19 19:32 Blood Pressure 113/72 05/29/19 19:32 O2 Sat by Pulse Oximetry (%) 97 05/29/19 19:32 Constitutional: Yes: Calm Eyes: Yes: Conjunctiva Clear HENT: Yes: Atraumatic Neck: Yes: Supple Cardiovascular: Yes: S1, S2 Respiratory: Yes: CTA Bilaterally Gastrointestinal: Yes: Soft Renal/: Yes: WNL Musculoskeletal: Yes: WNL Edema: No Neurological: Yes: Oriented Psychiatric: Yes: Oriented Labs: CBC, BMP 05/29/19 09:34 05/29/19 09:34 Microbiology Laboratory Tests 10/19/15 10/20/15 10/22/15 05:30 06:05 05:40 Sodium Potassium BUN Creatinine 2.2 H D 1.5 H D 1.1 D Ur Specific [place] Urine Protein Urine Blood Influenza A (Rapid) Influenza B (Rapid) 05/29/19 05/29/19 05/29/19 09:34 09:57 12:00 Sodium 134 L Potassium 3.7 BUN 25.7 H Creatinine 1.7 H Ur Specific [place] 1.009 L Urine Protein Trace Urine Blood Negative Influenza A (Rapid) Negative Influenza B (Rapid) Positive A Imaging - Results Chest X-ray: Report Reviewed Problem List - Problems (1) Influenza B Code(s): J10.1 - FLU DUE TO OTH IDENT INFLUENZA VIRUS W OTH RESP MANIFEST (2) Sepsis Code(s): A41.9 - SEPSIS, UNSPECIFIED ORGANISM Qualifiers: Sepsis type: sepsis due to unspecified organism Sepsis acute organ dysfunction status: unspecified Qualified Code(s): A41.9 - Sepsis, unspecified organism (3) Acute renal failure Code(s): N17.9 - ACUTE KIDNEY FAILURE, UNSPECIFIED Assessment/Plan Current Medications Generic Name Dose Route Start Last Admin Trade Name Freq PRN Reason Stop Dose Admin Acetaminophen 650 mg 05/29/19 13:33 05/29/19 19:33 Tylenol - PO 650 mg Q6H PRN Administration FEVER Atorvastatin Calcium 10 mg 05/29/19 22:00 Lipitor - PO HS ROS Heparin Sodium (Porcine) 5,000 unit 05/29/19 14:00 05/29/19 14:41 Heparin - SQ 5,000 unit TID ROS Administration Sodium Chloride 1,000 mls @ 125 mls/hr 05/29/19 13:45 05/29/19 14:12 Normal Saline - IV 125 mls/hr ASDIR ROS Administration Insulin Aspart 1 vial 05/29/19 16:30 05/29/19 17:02 Novolog Vial Sliding Scale - SQ Not Given ACHS [facility] Protocol Multivitamins/Minerals/Vitamin C 1 tab 05/30/19 10:00 Tab-A-Vit - PO DAILY [facility] Oseltamivir Phosphate 30 mg 05/29/19 22:00 Tamiflu - PO 06/03/19 21:59 BID [facility] Laboratory Tests 05/29/19 05/29/19 09:34 13:17 Lactic Acid 2.2 H* 1.3 Impression 1. TL 2. influenza 3. lymphoma 4. dm 5. htn Plan - cont saline - monitor bp - hold stephanie as pt is hypotensive and in tl - hold metformin - lactic acid improved
[2019-05-29 22:39] VITALS: BMI 23.5
--- NOTE | 2019-05-29 22:50 | ECHO ---
Version: 1 Name: RICHAR CRUZ Exam: Adult Echocardiogram Study Date: 05/29/2019, 3:26 PM Age: 53 Years MMode/2D Measurements & Calculations IVSd: 0.93 cm LVIDs: 3.1 cm LVIDd: 4.6 cm LVPWd: 1.05 cm LAV (MOD-bp): 45.1 ml ACS: 2.15 cm Ao root diam: 3.8 cm LVOT diam: 2.02 cm LA dimension: 3.3 cm Doppler Measurements & Calculations MV E max ashvin: 82.5 cm/sec Med E/e': 9.0 MV A max ashvin: 66.9 cm/sec Med Peak E' Ashvin: 9.1 cm/sec MV E/A: 1.23 Lat E/e': 7.3 Lat Peak E' Ashvin: 11.3 cm/sec Ao max P.3 mmHg LAVON(I,D): 2.8 cm Ao mean P.89 mmHg LV V1 mean: 56.6 cm/sec Ao V2 max: 90.2 cm/sec LV V1 mean P.47 mmHg TR max ashvin: 217.5 cm/sec TR max P.0 mmHg Procedure A complete two-dimensional transthoracic echocardiogram was performed (2D, M-mode, Doppler and color flow Doppler). Left Ventricle The left ventricular size, thickness and function are normal. The left ventricular ejection fraction is normal. Ejection Fraction = 55-60%. The left ventricular wall motion is normal. Right Ventricle The right ventricle is normal in size and function. Atria Normal left and right atrial size and function. Mitral Valve There is no mitral regurgitation noted. Tricuspid Valve There is trace tricuspid regurgitation. Aortic Valve No hemodynamically significant valvular aortic stenosis. No aortic regurgitation is present. Pulmonic Valve There is no pulmonic valvular regurgitation. Great Vessels Mild aortic root dilatation. Pericardium/Pleura There is no pericardial effusion. Summary Statements The left ventricular size, thickness and function are normal The right ventricle is normal in size and function. There is trace tricuspid regurgitation. Mild aortic root dilatation. MD Rufus Bolanos 05/29/2019, 10:50 PM Ordering Physician: Diego Dockery Referring Physician: DIEGO DOCKERY Performed By: Nazia Ornelas
[2019-05-29] MEDS: OSELTAMIVIR PHOSPHATE 30 MG CAPSULE PO SCH (22:58)
[2019-05-29] MEDS: ATORVASTATIN CA 10 MG TABLET (FP) PO SCH (22:58)
[2019-05-30] MEDS: ACETAMINOPHEN 325 MG TABLET (FP) PO PRN ×2 (05:53→20:17)
[2019-05-30] MEDS: HEPARIN NA (PORCINE) 5,000 UNITS/ML 1ML VIAL SQ SCH ×3 (05:54→22:47)
[2019-05-30] MEDS: SODIUM CHLORIDE 1,000 ML IV SCH ×2 (05:55→14:15)
[2019-05-30] MEDS: INSULIN SLIDING SCALE (NOVOLOG) 1 VIAL SQ SCH ×4 (06:14→22:47)
[2019-05-30 06:57] LABS: BASO % 0.7 % (0-2.0); EOS % 0.7 % (0-4.5); HEMATOCRIT 32.2 % (35.4-49); HEMOGLOBIN 11.4 GM/dL (11.7-16.9); LYMPH % 37.9 % (8-40); MCH 34.6 pg (25.7-33.7); MCHC 35.4 g/dl (32.0-35.9); MEAN CELL VOLUME 97.8 fl (80-96); MEAN PLT VOLUME 7.8 fl (7.5-11.1); MONO % 13.5 % (3.8-10.2); NEUT % 47.2 % (42.8-82.8); PLATELET COUNT 122 K/MM3 (134-434); RBC 3.29 M/mm3 (4.00-5.60); RDW 13.1 % (11.9-15.9); WHITE BLOOD COUNT 4.4 K/mm3 (4.0-10.0)
[2019-05-30 07:47] LABS: ALBUMIN 2.7 g/dl (3.4-5.0); BILIRUBIN,TOTAL 0.9 mg/dL (0.2-1); BLOOD UREA NITROGEN 14.7 mg/dL (7-18); MAGNESIUM 2.1 mg/dL (1.8-2.4); PHOSPHOROUS 1.5 mg/dL (2.5-4.9); POTASSIUM 3.6 mmol/L (3.5-5.1); TOT PROT 5.5 g/dl (6.4-8.2)
--- NOTE | 2019-05-30 07:47 | PN ---
Progress Note, Physician History of Present Illness: 53 M h/o HTN, type 2 diabetes mellitus,chronic Hep B, remote h/o lymphoma (s/p bone marrow transplant years ago), GERD, and HLD, presenting to the ED with URTI symptoms, work-up showed influenza B positive and SEN. - Current Medication List Current Medications: Active Medications Acetaminophen (Tylenol -) 650 mg PO Q6H PRN PRN Reason: FEVER Last Admin: 05/30/19 05:53 Dose: 650 mg Atorvastatin Calcium (Lipitor -) 10 mg PO HS ROS Last Admin: 05/29/19 22:58 Dose: 10 mg Heparin Sodium (Porcine) (Heparin -) 5,000 unit SQ TID ROS Last Admin: 05/30/19 05:54 Dose: 5,000 unit Sodium Chloride (Normal Saline -) 1,000 mls @ 125 mls/hr IV ASDIR [facility] Last Admin: 05/30/19 05:55 Dose: 125 mls/hr Insulin Aspart (Novolog Vial Sliding Scale -) 1 vial SQ ACHS [facility]; Protocol Last Admin: 05/30/19 06:14 Dose: Not Given Multivitamins/Minerals/Vitamin C (Tab-A-Vit -) 1 tab PO DAILY [facility] Oseltamivir Phosphate (Tamiflu -) 30 mg PO BID [facility] Stop: 06/03/19 21:59 Last Admin: 05/29/19 22:58 Dose: 30 mg - Objective Vital Signs: Vital Signs Temperature 99.0 F 05/30/19 05:00 Pulse Rate 80 05/30/19 05:00 Respiratory Rate 20 05/30/19 05:00 Blood Pressure 105/70 05/30/19 05:00 O2 Sat by Pulse Oximetry (%) 95 05/29/19 23:47 General: Middle-aged man man, comfortable, not in distress HEENT; mucous membranes moist, no anemia, no jaundice, PERRLA, no nystagmus Neck: No JVD, supple, no bruit, thyroid palpably normal, normal carotid pulsations. Chest: Nontender, CVS: S1-S2 regular no murmur/gallop/rub Abdomen: Nondistended, soft, bowel sounds present. Extremities: No edema., No cough tenderness, pulses present [employer]: AO X3 , no gross motor sensory deficit Labs: INR, PTT INR 1.15 (0.83-1.09) H 05/29/19 09:34 Influenza B Problem List - Problems (1) Influenza B Assessment/Plan: Put on renal dose of Tamiflu, SEN resolved. Will put on a daily dose of Tamiflu. 75 mg twice daily Problems reviewed: Yes Code(s): J10.1 - FLU DUE TO OTH IDENT INFLUENZA VIRUS W OTH RESP MANIFEST (2) Sepsis Assessment/Plan: Elevated T WBC count, fever, hypotension, SEN in the setting of influenza B, received IV hydration, remained hemodynamically stable Problems reviewed: Yes Code(s): A41.9 - SEPSIS, UNSPECIFIED ORGANISM Qualifiers: Sepsis type: sepsis due to unspecified organism Sepsis acute organ dysfunction status: unspecified Qualified Code(s): A41.9 - Sepsis, unspecified organism (3) Acute renal failure Assessment/Plan: Resolved, most likely due to dehydration and sepsis, increase p.o. hydration continue IV hydration as patient has diarrhea Problems reviewed: Yes Code(s): N17.9 - ACUTE KIDNEY FAILURE, UNSPECIFIED (4) Type 2 diabetes mellitus, uncontrolled Assessment/Plan: Optimize glycemic control follow-up hemoglobin A1c, diabetic diet Problems reviewed: Yes Code(s): E11.65 - TYPE 2 DIABETES MELLITUS WITH HYPERGLYCEMIA (5) Lymphoma Assessment/Plan: Remote history of lymphoma, currently not on any therapy Problems reviewed: Yes Code(s): C85.90 - NON-HODGKIN LYMPHOMA, UNSPECIFIED, UNSPECIFIED SITE (6) Chronic hepatitis B Assessment/Plan: Continue home chemotherapy. Problems reviewed: Yes Code(s): B18.1 - CHRONIC VIRAL HEPATITIS B WITHOUT DELTA-AGENT (7) Diarrhea Assessment/Plan: Most likely part of viral syndrome will observe. Code(s): R19.7 - DIARRHEA, UNSPECIFIED
[2019-05-30 07:53] LABS: CALCIUM 6.9 mg/dL (8.5-10.1)
[2019-05-30] MEDS ORDERED: CALCIUM GLUCONATE 10% - 1,000 MG/10 ML VIAL IVPB ONE (09:24)
[2019-05-30] MEDS: MULTIVITAMINS (DAILY MVI) TABLET (FP) PO SCH (09:36)
[2019-05-30] MEDS: OSELTAMIVIR PHOSPHATE 30 MG CAPSULE PO SCH (09:36)
[2019-05-30] MEDS: CALCIUM 500MG/VIT-D 200 UNITS COMBO TABLET (FP) PO SCH (09:56)
--- NOTE | 2019-05-30 11:30 | DS ---
Physical Examination Vital Signs: Vital Signs Temperature 97.8 F 05/30/19 09:34 Pulse Rate 77 05/30/19 09:34 Respiratory Rate 19 05/30/19 09:34 Blood Pressure 110/71 05/30/19 09:34 O2 Sat by Pulse Oximetry (%) 95 05/29/19 23:47 Findings/Remarks: General: Middle-aged man, comfortable, not in distress HEENT: mucous membranes moist, no anemia, no jaundice, PERRLA, no nystagmus Neck: No JVD, supple, no bruit, thyroid palpably normal, normal carotid pulsations. Chest: Nontender, clear to auscultation bilaterally. CVS: S1-S2 regular no murmur/gallop/rub Abdomen: Nondistended, soft, bowel sounds present. Extremities: No edema., No cough tenderness, pulses present [employer]: AO X3 , no gross motor sensory deficit Labs: CBC, BMP 05/30/19 05:40 05/30/19 05:40 Discharge Summary Problems reviewed: Yes Reason For Visit: INFLUENZA DUE TO VIRUS TYPE B Current Active Problems Chronic hepatitis B (Acute) Influenza B (Acute) Sepsis (Acute) Hospital Course: 53 years old man history of hepatitis B, borderline type 2 diabetes mellitus, presented with acute influenza infection with SEN with nausea vomiting and diarrhea, responded to IV hydration and Tamiflu, renal function trended normal to baseline is being discharged home patient will follow up with his PMD Condition: Stable - Instructions Referrals: Rufus Layne MD [Primary Care Provider] - Disposition: HOME - Home Medications Comprehensive Discharge Medication List: Ambulatory Orders Acetaminophen [Tylenol .Regular Strength -] 650 mg PO Q4H PRN #0 tablet Enalapril Maleate 2.5 mg PO DAILY 05/29/19 Entecavir 1 mg PO DAILY 05/29/19 Fluticasone Prop 0.05% Nasal [Flonase -] 1 spr IN ASDIR 05/29/19 Metformin HCl [Glucophage] 1,000 mg PO DAILY 05/29/19 Mv-Min/Folic/Vit K/Lycop/Coq10 [Daily Multivitamin Capsule] 1 each PO DAILY Simvastatin 20 mg PO HS 05/29/19 Prescription Drug Monitoring Program (I-STOP) results: I-STOP reviewed and no issues identified
--- NOTE | 2019-05-30 15:43 | PN ---
Progress Note, Physician History of Present Illness: Pt seen and examined at bedside. He is awake and alert. He is eager to go home. - Current Medication List Current Medications: Active Medications Acetaminophen (Tylenol -) 650 mg PO Q6H PRN PRN Reason: FEVER Last Admin: 05/30/19 05:53 Dose: 650 mg Atorvastatin Calcium (Lipitor -) 10 mg PO HS [facility] Last Admin: 05/29/19 22:58 Dose: 10 mg Calcium Carbonate/Cholecalciferol (Os-Andrea 500+D -) 2 tab PO DAILY [facility] Last Admin: 05/30/19 09:56 Dose: 2 tab Heparin Sodium (Porcine) (Heparin -) 5,000 unit SQ TID [facility] Last Admin: 05/30/19 14:13 Dose: 5,000 unit Sodium Chloride (Normal Saline -) 1,000 mls @ 125 mls/hr IV ASDIR [facility] Last Admin: 05/30/19 14:15 Dose: 125 mls/hr Insulin Aspart (Novolog Vial Sliding Scale -) 1 vial SQ ACHS [facility]; Protocol Last Admin: 05/30/19 12:11 Dose: Not Given Multivitamins/Minerals/Vitamin C (Tab-A-Vit -) 1 tab PO DAILY [facility] Last Admin: 05/30/19 09:36 Dose: 1 tab Oseltamivir Phosphate (Tamiflu -) 75 mg PO BID [facility] Stop: 06/04/19 21:59 - Objective Vital Signs: Vital Signs Temperature 98 F 05/30/19 15:24 Pulse Rate 67 05/30/19 15:24 Respiratory Rate 18 05/30/19 15:24 Blood Pressure 135/80 05/30/19 15:24 O2 Sat by Pulse Oximetry (%) 98 05/30/19 09:00 Constitutional: Yes: Calm Eyes: Yes: Conjunctiva Clear HENT: Yes: Atraumatic Neck: Yes: Supple Cardiovascular: Yes: S1, S2 Respiratory: Yes: CTA Bilaterally Gastrointestinal: Yes: Soft Genitourinary: Yes: WNL Musculoskeletal: Yes: WNL Edema: No Neurological: Yes: Oriented Psychiatric: Yes: Oriented Labs: CBC, BMP 05/30/19 05:40 05/30/19 05:40 INR, PTT INR 1.15 (0.83-1.09) H 05/29/19 09:34 Problem List - Problems (1) Influenza B Code(s): J10.1 - FLU DUE TO OTH IDENT INFLUENZA VIRUS W OTH RESP MANIFEST (2) Sepsis Code(s): A41.9 - SEPSIS, UNSPECIFIED ORGANISM Qualifiers: Sepsis type: sepsis due to unspecified organism Sepsis acute organ dysfunction status: unspecified Qualified Code(s): A41.9 - Sepsis, unspecified organism (3) Acute renal failure Code(s): N17.9 - ACUTE KIDNEY FAILURE, UNSPECIFIED Assessment/Plan Current Medications Generic Name Dose Route Start Last Admin Trade Name Freq PRN Reason Stop Dose Admin Acetaminophen 650 mg 05/29/19 13:33 05/30/19 05:53 Tylenol - PO 650 mg Q6H PRN Administration FEVER Atorvastatin Calcium 10 mg 05/29/19 22:00 05/29/19 22:58 Lipitor - PO 10 mg HS ROS Administration Calcium Carbonate/Cholecalciferol 2 tab 05/30/19 10:00 05/30/19 09:56 Os-Andrea 500+D - PO 2 tab DAILY ROS Administration Heparin Sodium (Porcine) 5,000 unit 05/29/19 14:00 05/30/19 14:13 Heparin - SQ 5,000 unit TID ROS Administration Insulin Aspart 1 vial 05/29/19 16:30 05/30/19 12:11 Novolog Vial Sliding Scale - SQ Not Given ACHS [facility] Protocol Multivitamins/Minerals/Vitamin C 1 tab 05/30/19 10:00 05/30/19 09:36 Tab-A-Vit - PO 1 tab DAILY [facility] Administration Oseltamivir Phosphate 75 mg 05/30/19 22:00 Tamiflu - PO 06/04/19 21:59 BID ROS Impression 1. SEN 2. influenza 3. lymphoma 4. dm 5. htn Plan - d/c fluids - replace calcium - renal function stable - hold stephanie until bp improves - outpt follow up - replace phos - can resume metformin on discharge as renal function improved - will follow prn
[2019-05-30] MEDS ORDERED: NAPH,MB-DB/K PH,MBDB POWDER PACKET PO ONE (16:00)
[2019-05-30] MEDS ORDERED: PT OWN MED DRAWER 7, Y5N ONE (20:29)
[2019-05-30] MEDS: NAPH,MB-DB/K PH,MBDB POWDER PACKET PO SCH (22:46)
[2019-05-30] MEDS: OSELTAMIVIR PHOSPHATE 75 MG CAPSULE PO SCH (22:47)
[2019-05-30] MEDS: ATORVASTATIN CA 10 MG TABLET (FP) PO SCH (22:47)
[2019-05-30] MEDS ORDERED: SODIUM CHLORIDE NASAL SPRAY 44 ML BOTTLE NS ONE (22:55)
[2019-05-31] MEDS: ACETAMINOPHEN 325 MG TABLET (FP) PO PRN (05:40)
[2019-05-31] MEDS: HEPARIN NA (PORCINE) 5,000 UNITS/ML 1ML VIAL SQ SCH ×2 (05:40→13:19)
[2019-05-31] MEDS: NAPH,MB-DB/K PH,MBDB POWDER PACKET PO SCH ×2 (05:40→13:18)
[2019-05-31] MEDS: INSULIN SLIDING SCALE (NOVOLOG) 1 VIAL SQ SCH ×2 (06:20→12:10)
[2019-05-31 07:54] LABS: BASO % 0.4 % (0-2.0); EOS % 0.7 % (0-4.5); HEMATOCRIT 33.9 % (35.4-49); HEMOGLOBIN 12.1 GM/dL (11.7-16.9); LYMPH % 40.5 % (8-40); MCH 34.5 pg (25.7-33.7); MCHC 35.6 g/dl (32.0-35.9); MEAN CELL VOLUME 97.1 fl (80-96); MEAN PLT VOLUME 8.1 fl (7.5-11.1); MONO % 12.7 % (3.8-10.2); NEUT % 45.7 % (42.8-82.8); PLATELET COUNT 123 K/MM3 (134-434); RBC 3.49 M/mm3 (4.00-5.60); RDW 12.6 % (11.9-15.9)
[2019-05-31 08:12] LABS: BLOOD UREA NITROGEN 9.1 mg/dL (7-18); CALCIUM 7.6 mg/dL (8.5-10.1); POTASSIUM 3.6 mmol/L (3.5-5.1)
--- NOTE | 2019-05-31 09:22 | PN ---
Progress Note (short form) - Note Progress Note: Much better no fever this morning had a fever last night no coughing no nausea vomiting fever chills. He ate well Seen by washer carcass today no new change off IV fluids. Vital Signs Period Temp Pulse Resp BP Sys/[place] Pulse Ox Last 24 Hr 97.8 F-100.8 F 67-92 18-20 110-135/48-80 97 Patient is comfortable HEENT normal Neck supple no JVD Lungs clear no wheezing Abdomen nontender no organomegaly bowel sounds normal Extremities no edema no cyanosis normal pulses Neurologically he is alert awake oriented, nonfocal Skin no rash noted CBC, BMP 05/31/19 06:05 05/31/19 06:05 Assessment and plan 53-year-old male who was admitted to the hospital with acute influenza acute renal insufficiency. Start on IV fluid in the hospital and Tamiflu he is improving his fever is much better. He is going home today on medications Tamiflu and his home medication he is going to follow-up with his doctor. Visit type - Emergency Visit Emergency Visit: Yes ED Registration Date: 05/29/19 Care time: The patient presented to the Emergency Department on the above date and was hospitalized for further evaluation of their emergent condition. - New Patient This patient is new to me today: Yes Date on this admission: 05/31/19 - Critical Care Critical Care patient: No - Discharge Referral Referred to [facility] Med P.C.: No
[2019-05-31] MEDS: MULTIVITAMINS (DAILY MVI) TABLET (FP) PO SCH (09:49)
[2019-05-31] MEDS: CALCIUM 500MG/VIT-D 200 UNITS COMBO TABLET (FP) PO SCH (09:49)
[2019-05-31] MEDS: OSELTAMIVIR PHOSPHATE 75 MG CAPSULE PO SCH (09:50)
[2019-05-31] MEDS ORDERED: CALCIUM 250MG/VIT-D 125 UNITS 1 COMBO TABLET PO SCH (10:00)
[2019-05-31 14:14] VITALS: BP 123/83; PULSE 84; TEMP 98.2
[2019-06-01] MEDS ORDERED: CALCIUM 500MG/VIT-D 200 UNITS COMBO TABLET (FP) PO SCH (10:00)
== END 2019-05-31 14:14 | disposition home or self-care (01) | DRG 720 ==
LOC: JER 08:47 → JERBED 11:00 → J4S 21:52
PROVIDERS: ATTEND Internal Medicine
DX: A41.9 Sepsis, unspecified organism (principal); J11.1 Influenza due to unidentified influenza virus with other respiratory manifestations; Z94.81 Bone marrow transplant status; N17.9 Acute kidney failure, unspecified; E11.65 Type 2 diabetes mellitus with hyperglycemia; C85.90 Non-Hodgkin lymphoma, unspecified, unspecified site; K21.9 Gastro-esophageal reflux disease without esophagitis; E78.5 Hyperlipidemia, unspecified; Z79.84 Long term (current) use of oral hypoglycemic drugs; E86.9 Volume depletion, unspecified; B18.1 Chronic viral hepatitis B without delta-agent; R19.7 Diarrhea, unspecified
CPT/HCPCS: 36415; 71045-TC-FY; 76775-TC; 80048; 80053; 81003; 82803; 82962; 83605; 83735; 84100; 84484; 85025; 85610; 85730; 87040; 87086; 87804; 93005; 93010; 93306-TC; 99285-25; J1644; J7030

== ENCOUNTER 2022-09-15 17:38 | Emergency (ER) | payer OTHER ==
[2022-09-15 18:04] VITALS: RESP 18; BMI 19.7
[2022-09-15] MEDS ORDERED: DEXAMETHASONE SOD PHOSPHATE 10 MG/1 ML VIAL IM ONE (19:10)
[2022-09-15] MEDS ORDERED: SODIUM CHLORIDE 0.9% 500 ML INFUS.BAG IV ONE ×2 (19:23→21:16)
[2022-09-15] MEDS ORDERED: DEXAMETHASONE SOD PHOSPHATE 10 MG/1 ML VIAL ONE (20:05)
[2022-09-15 20:31] LABS: BASO % 0.3 % (0-2.0); HEMATOCRIT 28.7 % (35.4-49); LYMPH % 8.3 % (8-40); MCH 34.3 pg (25.7-33.7); MCHC 34.9 g/dl (32.0-35.9); MEAN CELL VOLUME 98.4 fl (80-96); MEAN PLT VOLUME 6.5 fl (7.5-11.1); NEUT % 73.4 % (42.8-82.8); PLATELET COUNT 219 10^3/uL (134-434); RBC 2.92 M/mm3 (4.00-5.60); RDW 13.8 % (11.9-15.9); WHITE BLOOD COUNT 6.1 K/mm3 (4.0-10.0)
[2022-09-15 20:37] LABS: INR 1.13 (0.83-1.09); PROTHROMBIN TIME (PATIENT) 13.1 SEC (9.7-13.0)
[2022-09-15 20:55] LABS: POTASSIUM 5.4 mmol/L (3.5-5.1)
[2022-09-15 20:57] LABS: CALCIUM 8.7 mg/dL (8.5-10.1)
[2022-09-15 20:58] LABS: ALBUMIN 2.7 g/dl (3.4-5.0); BLOOD UREA NITROGEN 19.3 mg/dL (7-18)
[2022-09-15 21:01] LABS: CREATININE 1.6 mg/dL (0.55-1.3)
[2022-09-15 21:02] LABS: TOT PROT 6.2 g/dl (6.4-8.2)
[2022-09-15 22:31] VITALS: BP 120/70; PULSE 88; TEMP 97.9
[2022-09-16 00:45] LABS: POTASSIUM 5.2 mmol/L (3.5-5.1)
[2022-09-16 00:48] LABS: BLOOD UREA NITROGEN 17.9 mg/dL (7-18); CALCIUM 8.5 mg/dL (8.5-10.1)
[2022-09-16 00:52] LABS: CREATININE 1.3 mg/dL (0.55-1.3)
[2022-09-16] MEDS ORDERED: SODIUM ZIRCONIUM CYCLOSILICATE (LOKELMA) 5 GM PACKET PO ONE (00:52)
[2022-09-16] MEDS ORDERED: SODIUM ZIRCONIUM CYCLOSILICATE (LOKELMA) 5 GM PACKET ONE (01:53)
[2022-09-16 02:22] LABS: PH,URINE 5.5 (5.0-8.0); URINE APPEARANCE CLEAR; URINE BILIRUBIN NEGATIVE (NEGATIVE); URINE COLOR YELLOW; URINE GLUCOSE (UA) NEGATIVE (NEGATIVE); URINE KETONE NEGATIVE (NEGATIVE); URINE LEUK ESTERASE NEGATIVE (NEGATIVE); URINE NITRITE NEGATIVE (NEGATIVE); URINE PROTEIN TRACE (NEGATIVE); URINE UROBILINOGEN 0.2 mg/dL (0.2-1.0)
[2022-09-16] MEDS ORDERED: SODIUM ZIRCONIUM CYCLOSILICATE (LOKELMA) 5 GM PACKET PO SCH (10:00)
== END 2022-09-16 02:28 | disposition home or self-care (01) ==
LOC: JER 17:38
PROC: 3E023GC Introduction of Other Therapeutic Substance into Muscle, Percutaneous Approach (ICD-10-PCS; principal; 2022-09-15)
DX: R09.81 Nasal congestion (principal); R11.10 Vomiting, unspecified; M79.10 Myalgia, unspecified site; R19.7 Diarrhea, unspecified; J02.9 Acute pharyngitis, unspecified; R63.0 Anorexia; R68.83 Chills (without fever); Z20.822 Contact with and (suspected) exposure to COVID-19
CPT/HCPCS: 0241U-QW; 36415; 70490-TC; 71045-TC-FY; 80048; 80053; 81003; 85025; 85610; 86308; 87070; 87651; 99285-25; J1100

== ENCOUNTER 2022-10-13 05:48 | Emergency (ER) | payer OTHER ==
[2022-10-13 06:01] VITALS: BP 101/58; PULSE 102; RESP 20; TEMP 98.3; BMI 20.1
[2022-10-13 07:23] LABS: BASO % 0.2 % (0-2.0); EOS % 1.4 % (0-4.5); HEMATOCRIT 35.9 % (35.4-49); HEMOGLOBIN 12.3 GM/dL (11.7-16.9); LYMPH % 3.5 % (8-40); MCH 33.1 pg (25.7-33.7); MCHC 34.3 g/dl (32.0-35.9); MEAN CELL VOLUME 96.7 fl (80-96); MEAN PLT VOLUME 7.5 fl (7.5-11.1); MONO % 7.4 % (3.8-10.2); NEUT % 87.5 % (42.8-82.8); PLATELET COUNT 175 10^3/uL (134-434); RBC 3.71 M/mm3 (4.00-5.60)
[2022-10-13 07:50] LABS: POTASSIUM 3.9 mmol/L (3.5-5.1)
[2022-10-13 07:52] LABS: ALBUMIN 3.7 g/dl (3.4-5.0); BLOOD UREA NITROGEN 20.4 mg/dL (7-18); CALCIUM 8.7 mg/dL (8.5-10.1); MAGNESIUM 2.1 mg/dL (1.8-2.4)
[2022-10-13 07:55] LABS: CREATININE 1.2 mg/dL (0.55-1.3)
[2022-10-13 07:57] LABS: BILIRUBIN,TOTAL 1.8 mg/dL (0.2-1)
[2022-10-13 08:16] LABS: BILIRUBIN,DIRECT 0.4 mg/dL (0.0-0.2)
[2022-10-13] MEDS ORDERED: SULFAMETHOXAZOLE/TRIMETHOPRIM 800MG/160MG D.S. TABLET PO ONE (09:36)
[2022-10-13] MEDS ORDERED: AMOX TR/POT CLAV 875MG/125MG TABLETS (FP) PO ONE (09:36)
[2022-10-13] MEDS ORDERED: AMOX TR/POT CLAV 875MG/125MG TABLETS (FP) ONE (10:12)
[2022-10-13] MEDS ORDERED: SULFAMETHOXAZOLE/TRIMETHOPRIM 800MG/160MG D.S. TABLET ONE (10:15)
== END 2022-10-13 10:40 | disposition home or self-care (01) ==
LOC: JER 05:48
DX: H57.89 Other specified disorders of eye and adnexa (principal); R00.0 Tachycardia, unspecified; L03.213 Periorbital cellulitis; R09.81 Nasal congestion; R05.9 Cough, unspecified
CPT/HCPCS: 36415; 70481-TC; 80053; 82248; 83735; 85025; 99284-25; Q9967